=== PATIENT | male | born 1975 | race Caucasian/White ===

== ENCOUNTER 2018-09-04 20:11 | Emergency (ER) | payer OTHER ==
[~2018-09-04] VITALS: Ht 170.2 cm; Wt 95.5 kg
[2018-09-04 20:17] VITALS: Ht 170.2 cm; Wt 95.5 kg
[2018-09-04] MEDS ORDERED: ROBAXIN500 MG PO (21:44)
[2018-09-04] MEDS ORDERED: ZOFRAN ODT4 MG/UDTAB PO (21:45)
[2018-09-04 22:31] VITALS: BP 123/84
== END 2018-09-04 22:12 | disposition home or self-care (01) ==
LOC: D.ER 20:11
DX: S00.93XA Contusion of unspecified part of head, initial encounter (principal); S20.211A Contusion of right front wall of thorax, initial encounter; W18.31XA Fall on same level due to stepping on an object, initial encounter; Y93.89 Activity, other specified; Y92.89 Other specified places as the place of occurrence of the external cause; M54.2 Cervicalgia; R07.81 Pleurodynia; F17.200 Nicotine dependence, unspecified, uncomplicated